=== PATIENT | male | born 1945 | race Caucasian/White ===

== ENCOUNTER 2018-05-23 10:30 | Outpatient (CLI) | payer MEDICARE, OTHER ==
[2015-10-31 09:50] VITALS: BP 149/74
[2018-05-23 11:10] LABS: BASOPHILS % 0.3 (0.0-1.5); EOSINOPHILS % 5.4 % (0.0-6.8); MEAN CORPUSCULAR HEMOGLOBIN 31.2 pg (28.0-34.0); MONOCYTES % 9.2 % (0.0-11.0)
== END 2018-05-23 13:15 ==
LOC: LAB 10:30
PROVIDERS: ATTEND Internal Medicine
DX: C90.00 Multiple myeloma not having achieved remission (principal)
CPT/HCPCS: 36415; 85025

== ENCOUNTER 2018-06-21 13:15 | Outpatient (CLI) | payer MEDICARE, OTHER ==
[2015-10-31 09:50] VITALS: BP 149/74
[2018-06-21 13:41] LABS: MEAN CORPUSCULAR HEMOGLOBIN 31.2 pg (28.0-34.0)
[2018-06-21 13:42] LABS: BASOPHILS % 0.3 (0.0-1.5); EOSINOPHILS % 7.9 % (0.0-6.8); MONOCYTES % 10.3 % (0.0-11.0); NEUTROPHILS # 2.9 # k/uL (1.4-7.7)
[2018-06-21 13:56] LABS: eGFR (Non-African) > 60
== END 2018-06-21 13:16 ==
LOC: LAB 13:15
PROVIDERS: ATTEND Internal Medicine
DX: C90.00 Multiple myeloma not having achieved remission (principal)
CPT/HCPCS: 36415; 80053; 85025

== ENCOUNTER 2018-08-17 10:47 | Outpatient (CLI) | payer MEDICARE, OTHER ==
[2015-10-31 09:50] VITALS: BP 149/74
[2018-08-17 11:08] LABS: BASOPHILS % 0.4 (0.0-1.5); EOSINOPHILS % 4.5 % (0.0-6.8); MEAN CORPUSCULAR HEMOGLOBIN 31.8 pg (28.0-34.0); MONOCYTES % 10.9 % (0.0-11.0); NEUTROPHILS # 3.6 # k/uL (1.4-7.7)
[2018-08-17 11:50] LABS: eGFR (Non-African) > 60
== END 2018-08-17 10:50 ==
LOC: LAB 10:47
PROVIDERS: ATTEND Internal Medicine
DX: C90.00 Multiple myeloma not having achieved remission (principal)
CPT/HCPCS: 36415; 80053; 85025

== ENCOUNTER 2018-09-14 10:35 | Outpatient (CLI) | payer MEDICARE, OTHER ==
[2015-10-31 09:50] VITALS: BP 149/74
[2018-09-14 11:03] LABS: BASOPHILS % 0.4 (0.0-1.5); EOSINOPHILS % 4.4 % (0.0-6.8); NEUTROPHILS # 2.8 # k/uL (1.4-7.7)
[2018-09-14 11:15] LABS: eGFR (Non-African) > 60
== END 2018-09-14 10:36 ==
LOC: LAB 10:35
PROVIDERS: ATTEND Internal Medicine
DX: C90.00 Multiple myeloma not having achieved remission (principal)
CPT/HCPCS: 36415; 80053; 85025

== ENCOUNTER 2018-10-11 12:03 | Outpatient (CLI) | payer MEDICARE, OTHER ==
[2015-10-31 09:50] VITALS: BP 149/74
[2018-10-11 12:15] LABS: BASOPHILS % 0.5 (0.0-1.5); EOSINOPHILS % 4.5 % (0.0-6.8); MEAN CORPUSCULAR HEMOGLOBIN 31.4 pg (28.0-34.0); MONOCYTES % 8.5 % (0.0-11.0); NEUTROPHILS # 3.7 # k/uL (1.4-7.7)
[2018-10-11 12:32] LABS: eGFR (Non-African) > 60
== END 2018-10-11 12:05 ==
LOC: LAB 12:03
PROVIDERS: ATTEND Internal Medicine
DX: C90.00 Multiple myeloma not having achieved remission (principal)
CPT/HCPCS: 36415; 80053; 85025

== ENCOUNTER 2018-12-13 10:33 | Outpatient (CLI) | payer MEDICARE, OTHER ==
[2015-10-31 09:50] VITALS: BP 149/74
[2018-12-13 10:52] LABS: BASOPHILS % 0.4 % (0.0-1.5); EOSINOPHILS % 2.6 % (0.0-6.8); MEAN CORPUSCULAR HEMOGLOBIN 30.9 pg (28.0-34.0); MONOCYTES % 9.5 % (0.0-11.0); NEUTROPHILS # 3.8 # k/uL (1.4-7.7)
== END 2018-12-13 10:35 ==
LOC: LAB 10:33
PROVIDERS: ATTEND Internal Medicine
DX: C90.00 Multiple myeloma not having achieved remission (principal)
CPT/HCPCS: 36415; 80053; 85025

== ENCOUNTER 2019-06-13 08:32 | Outpatient (CLI) | payer MEDICARE, OTHER ==
[2015-10-31 09:50] VITALS: BP 149/74
[2019-06-13 08:47] LABS: BASOPHILS % 0.5 % (0.0-1.5); NEUTROPHILS # 2.1 # k/uL (1.4-7.7)
[2019-06-13 09:23] LABS: eGFR (Non-African) > 60
== END 2019-06-13 08:37 ==
LOC: LAB 08:32
PROVIDERS: ATTEND Internal Medicine
DX: C90.00 Multiple myeloma not having achieved remission (principal)
CPT/HCPCS: 36415; 80053; 85025

== ENCOUNTER 2019-07-10 13:02 | Outpatient (CLI) | payer MEDICARE, OTHER ==
[2015-10-31 09:50] VITALS: BP 149/74
[2019-07-10 13:21] LABS: BASOPHILS % 0.3 % (0.0-1.5); NEUTROPHILS # 2.3 # k/uL (1.4-7.7)
[2019-07-10 13:54] LABS: eGFR (Non-African) > 60
== END 2019-07-10 13:07 ==
LOC: LAB 13:02
PROVIDERS: ATTEND Internal Medicine
DX: C90.00 Multiple myeloma not having achieved remission (principal)
CPT/HCPCS: 36415; 80053; 85025

== ENCOUNTER 2019-08-07 14:34 | Outpatient (CLI) | payer MEDICARE, OTHER ==
[2015-10-31 09:50] VITALS: BP 149/74
[2019-08-07 14:58] LABS: BASOPHILS % 0.7 % (0.0-1.5); NEUTROPHILS # 1.9 # k/uL (1.4-7.7)
[2019-08-07 15:09] LABS: eGFR (Non-African) > 60
== END 2019-08-07 14:39 ==
LOC: LAB 14:34
PROVIDERS: ATTEND Internal Medicine
DX: C90.00 Multiple myeloma not having achieved remission (principal)
CPT/HCPCS: 36415; 80053; 85025